=== PATIENT | female | born 1970 | race Two or more races ===

== ENCOUNTER 2020-07-11 09:57 | Emergency (ER) | payer BC ==
[~2020-07-11] VITALS: Ht 160 cm; Wt 99.8 kg
[2020-07-11] MEDS ORDERED: DRAMAMINE25 MG (10:09)
[2020-07-11] MEDS ORDERED: MOTION SICKNESS25 M1 PO (20:09)
[2020-07-11] MEDS ORDERED: METOCLOPRAMIDE10 MG PO (20:09)
[2020-07-11] MEDS ORDERED: AMOX-CLAV 875-1 EACH PO (20:09)
[2020-07-11] MEDS ORDERED: INTESTINEX680 M1 PO (20:09)
== END 2020-07-11 20:26 | disposition home or self-care (01) ==
LOC: ER 09:57
DX: H81.12 Benign paroxysmal vertigo, left ear (principal); H66.92 Otitis media, unspecified, left ear